=== PATIENT | female | born 1955 ===

== ENCOUNTER 2018-06-25 08:36 | Day surgery (SDC) | payer MEDICARE ==
--- NOTE | 2018-06-25 08:41 | CP.SDSHP ---
Same Day Surgery H & P - History Proposed Procedure: colonoscopy - Previous Medical/Surgical History Comments: brain aneurysm - Date & Time Date: 06/25/18 Time: 08:41 Short Stay Discharge - Short Stay Discharge Admitting Diagnosis/Reason for Visit: SCREENING Disposition: HOME/ ROUTINE
[2018-06-25 09:23] VITALS: BMI 33.5
[2018-06-25] MEDS ORDERED: Midazolam 2 MG/2 ML VIAL ONE (10:26)
[2018-06-25] MEDS ORDERED: Propofol 10 mg/ml Inj (20 ML) ONE (10:26)
[2018-06-25 11:12] VITALS: TEMP 95.9
[2018-06-25 11:50] VITALS: BP 108/61; PULSE 87; RESP 15; O2SAT 98
== END 2018-06-25 12:49 | disposition home or self-care (01) ==
LOC: C.ENDO 08:36
PROVIDERS: ATTEND Colon & Rectal Surgery
DX: Z12.11 Encounter for screening for malignant neoplasm of colon (principal); K64.8 Other hemorrhoids; Q43.8 Other specified congenital malformations of intestine
CPT/HCPCS: G0121; J2250; J2704; J3010